=== PATIENT | female | born 1975 | race Caucasian/White ===

== ENCOUNTER 2017-02-20 15:07 | Emergency (ER) | END 2017-02-20 17:09 | disposition home or self-care (01) ==

== ENCOUNTER 2018-04-30 21:27 | Emergency (ER) | payer OTHER ==
[~2018-04-30] VITALS: Ht 154.9 cm; Wt 77.0 kg
[~2018-04-30 21:27] MED LIST: CEPH-443 PO; DENIES MEDS; IBUP-1542 PO; SULF1TAB31 PO
[2018-04-30 21:54] VITALS: Ht 154.9 cm; Wt 77.0 kg
--- NOTE | 2018-05-01 00:50 | ERD ---
ER Documentation Chief Complaint Chief Complaint COUGH WITH FEVERE/SORE THROAT/ALEXIS X 4 DAYS, +FLU HPI This is a 43-year-old female presents emergency department with complaints of co ugh, sinus congestion, sore throat for about 3-4 days. Exposed to who was just diagnosed with influenza and was prescribed with Tamiflu. LMP: Stated it was 3 months ago. A0. Denies headache, head injury, loss of consciousness, dizziness, neck pain, neck stiffness, throat pain, difficulty swallowing, difficulty breathing lying flat, shoulder pain, chest pain, back pain, abdominal pain, nausea, vomiting, constipation, diarrhea, urinary symptoms, or possibility being , loss of bowel and bladder control, trauma, injury, falls, difficulty walking due to pain, numbness or tingling sensation, calf pain, recent travel, recent major surgery in the last 3 weeks, calf pain, recent long travel, recent exposure to any illness, recent antibiotic use in the last 3 months, fever, chills, seizures. Past medical history: Surgical history: Social: Denies smoking, use of alcoholic beverages, use of illegal drugs. ROS All systems reviewed and are negative except as per history of present illness. Medications Home Meds Active Scripts Amoxicillin* (Amoxicillin*) 500 Mg Cap, 500 MG PO TID for 10 Days, CAP Prov:PASILABAN,KLAR F 05/01/18 Oseltamivir Phosphate* (Tamiflu*) 75 Mg Capsule, 75 MG PO BID for 5 Days, CAP Prov:PASILABAN,KLAR F 05/01/18 Ibuprofen* (Motrin*) 800 Mg Tab, 800 MG PO Q6H PRN for PAIN AND OR ELEVATED TEMP, #30 TAB Prov:PASILABAN,KLAR F 05/01/18 Benzonatate* (Tessalon Perle*) 100 Mg Capsule, 100 MG PO Q8H PRN for COUGH, #15 CAP Prov:PASILABAN,KLAR F 05/01/18 Ibuprofen* (Motrin*) 600 Mg Tab, 600 MG PO Q6, #30 TAB Prov:ORI ABDI PA-C 02/20/17 Sulfamethoxazole/Trimethoprim* (Bactrim Ds* Tablet) 1 Each Tablet, 1 TAB PO BID, #14 TAB Prov:ORI ABDI PA-C 02/20/17 Cephalexin* (Keflex*) 500 Mg Capsule, 500 MG PO QID for 7 Days, CAP Prov:ORI ABDI PA-C 02/20/17 Reported Medications [Denies Meds] No Conflict Check 06/01/10 Allergies Allergies: Coded Allergies: No Known Drug Allergy (Verified Allergy, Mild, 06/01/10) PMhx/Soc History of Surgery: Yes ([facility], HERNIA 2008) Anesthesia Reaction: No Hx Neurological Disorder: No Hx Respiratory Disorders: No Hx Cardiac Disorders: No Hx Psychiatric Problems: No Hx Miscellaneous Medical Probl: No Hx Alcohol Use: No Hx Substance Use: No Hx Tobacco Use: No Smoking Status: Never smoker Physical Exam Vitals Vital Signs Date Temp Pulse Resp B/P (MAP) Pulse Ox O2 O2 Flow FiO2 Time Delivery Rate 05/01/18 98.3 73 20 119/77 97 Room Air 01:23 (91) 04/30/18 99.6 103 18 127/79 98 21:54 (95) Physical Exam Const: No acute distress Head: Atraumatic Eyes: Normal Conjunctiva ENT: Normal External Ears, Nose and Mouth. Bilateral ears: TMs are not erythematous. No bleeding. No discharge. No hearing loss. No mastoid tenderness. Nose: There is frontal and maxillary sinus tenderness palpation. Throat: Uvula is midline and nondisplaced. Tonsils are +1 bilaterally without redness and without exudates. Tolerating secretions. Patent airway. Speaks full and clear sentences. No tripoding. Neck: Full range of motion. No meningismus. No nuchal rigidity. No signs of meningeal irritation. Resp: Clear to auscultation bilaterally. No accessory muscle use in breathing. Cardio: Regular rate and rhythm, no murmurs Abd: Soft, non tender, non distended. Normal bowel sounds Skin: No petechiae or rashes. Color appears normal for ethnicity. No skin tenting. No signs of severe dehydration. Back: No midline or flank tenderness Ext: No cyanosis, or edema Neur: Awake and alert. No neurological deficits. Psych: Normal Mood and Affect Results 24 hrs Current Medications Medications Dose Sig/Brian Start Time Status Last (Trade) Ordered Route PRN Stop Time Admin Dose Reason Admin Guaifenesin 200 mg ONCE ONCE 05/01/18 DC 05/01/18 (Robitussin PO 01:00 01:18 Liquid Cup) 05/01/18 01:01 Ibuprofen 800 mg ONCE ONCE 05/01/18 DC 05/01/18 (Motrin) PO 01:00 01:19 05/01/18 01:01 Procedures/MDM Offered diagnostic tests but patient and family member strongly refused. Stated that they do not want to wait much longer. Diagnostic tests: Clinical exam. Treatment: Guaifenesin. Motrin. Re-evaluation: Not in distress. Differential diagnosis I have low suspicion for sepsis, meningitis, mastoiditis, peritonsillar abscess, pneumonia, bronchospasm, severe dehydration. Final diagnosis: Influenza-like symptoms. Sinusitis. Prescription: Amoxicillin. Motrin. Tessalon Perles. Tamiflu. Follow-up with PCP in the next 24-48 hours. Come back here in the emergency department for any new symptoms or any worsening symptoms. All questions and concerns were answered. Patient and family members verbalized understanding and agreed with plan of care. Hemodynamically stable on discharge. Departure Diagnosis: Primary Impression: Influenza-like symptoms Additional Impression: Sinusitis Condition: Stable Additional Instructions: Follow-up with PCP in the next 24-48 hours. Come back here in the emergency department for any new symptoms or any worsening symptoms. JADIEL POWELL May 01, 2018 00:49
[2018-05-01] MEDS ORDERED: AMOX500C2 PO (00:52)
[2018-05-01] MEDS ORDERED: IBUP800T48 PO (00:52)
[2018-05-01] MEDS ORDERED: OSEL75CA23 PO (00:52)
[2018-05-01] MEDS ORDERED: BENZ-6 PO (00:52)
[2018-05-01] MEDS ORDERED: IBUPROFEN 800 MG TAB PO ONE (01:00)
[2018-05-01] MEDS ORDERED: GUAIFENESIN 20 MG/ML 5ML CUP PO ONE (01:00)
[2018-05-01 01:23] VITALS: BP 119/77; PULSE 73; RESP 20
== END 2018-05-01 01:24 | disposition home or self-care (01) ==
LOC: FTE 21:27
DX: J32.9 Chronic sinusitis, unspecified (principal)
CPT/HCPCS: 99283